=== PATIENT | female | born 1965 | race Caucasian/White ===

== ENCOUNTER 2017-04-06 09:43 | Day surgery (SDC) | payer BC ==
--- OUTSIDE RECORDS SUMMARY | 2017-04-06 09:47 | XMS REPORT | Continuity of Care Document ---
:1965 Author Organization [facility] ([facility] Address [place] [address] Phone [phone] Care Team Providers Name Role Phone Provider, No-Primary Care Primary Care Provider Unavailable Source Comments This disclosure is being made pursuant to the Care Everywhere program, applicable federal and state laws, and may not contain all informaitonavailable regarding this patient.[facility] ([facility]) Active Allergies and Adverse Reactions Not on File Current Medications Not on file Active Problems Not on file Social History Tobacco Use Types Packs/Day Years Used Date Never Assessed Last Filed Vital Signs Vital Sign Reading Time Taken Blood Pressure - - Pulse - - Temperature - - Respiratory Rate - - Height - - Weight 52.998 kg (116 lb 13.4 oz) 08/03/2000 8:05 AM CDT Body Mass Index - - Oxygen Saturation - - Plan of Care Health Maintenance Due Date Last Done Comments HCV Screening 1965 Hepatitis B Vaccine (1 of 3 - Primary Series) 1965 Tdap Vaccine 1975 Lipid Disorder Screening 1982 MMR Vaccine 1982 Td Vaccine 1982 Cervical Cancer Screening 07/18/2003 07/18/2000 Mammogram 2004 07/18/2000 Colonoscopy 2014 Influenza Vaccine: Seasonal (#1) 06/05/2016 Results from Last 3 Months Not on file
--- NOTE | 2017-04-06 10:27 | OR ---
Anesthesia Pre Procedure Eval Pre Procedure Evaluation: Last Vital Signs Temp 36.8 C 04/06/17 10:02 Pulse 58 L 04/06/17 10:02 Resp 16 04/06/17 10:02 BP 89/62 04/06/17 10:02 Pulse Ox 100 04/06/17 10:02 PRE PROCEDURE EVALUATION:: DATE: 04/06/2017 TIME: 1020 INDICATIONS: Radicular cervical pain. 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 EXAM: Lungs clear and equal. Heart rate regular. Patient complains of mid neck pain that radiates into her right shoulder and down into her right hand. Procedure risks and benefits were explained to and accepted by the patient. ASSESSMENT OF MEDICAL STATUS: No contraindication to cervical epidural steroid injection. PLANNED PROCEDURE : Fluoroscopy-guided epidural injection at C7-T1 Home Medications: HOME MEDICATIONS Estrogen,Con/M-Progest Acet [Prempro 0.625-2.5 mg Tablet] 1 tab PO DAILY [Last Taken 06/24/14] Levothyroxine Sodium [Synthroid] 50 mcg PO DAILY 06/25/14 [Last Taken 06/24/14] ALPRAZolam [Xanax] 0.25 mg PO BID PRN 06/30/14 [Last Taken Unknown] Calcium No.1/D3/B6/FA/B12/Aloe [Vitamin D3-Aloe 1,000 Unit Tab] 1 tab PO DAILY 06/30/14 [Last Taken Unknown] Calcium/Cranberry Fruit [Cranberry 400 mg Caplet] 1 each PO DAILY 06/30/14 [ Last Taken Unknown] Cyclobenzaprine HCl [Flexeril] 10 mg PO TID PRN 06/30/14 [Last Taken Unknown] Modafinil [Provigil] 200 mg PO DAILY 06/30/14 [Last Taken Unknown] Multivitamins [Multivitamin Keri] 1 cap PO DAILY 06/30/14 [Last Taken Unknown] traMADol HCL [Ultram] 100 mg PO DAILY PRN 06/30/14 [Last Taken Unknown] Calcium Carbonate [Aofo-Tzp-326] 500 mg PO DAILY 03/29/17 [Last Taken Unknown] EPINEPHrine [Epipen 2-Aristides] 0.3 mg IM ONCE PRN 03/29/17 [Last Taken Unknown] Ibuprofen [Motrin] 400 mg PO Q4H PRN 03/29/17 [Last Taken Unknown]
[2017-04-06] MEDS ORDERED: LIDOCAINE HCL/PF 5 ML VIAL IJ ONE (10:52)
[2017-04-06] MEDS ORDERED: DEXAMETHASONE SOD PHOSPHATE 10 MG/ML VIAL IJ ONE (10:52)
[2017-04-06] MEDS ORDERED: IOPAMIDOL 20 ML VIAL IJ ONE (10:52)
--- NOTE | 2017-04-06 11:27 | OR ---
Anesthesia Procedure Note - Anesthesia Procedure Note Narrative: Vital Signs - Last Taken Temp 36.5 C 04/06/17 11:00 Pulse 60 04/06/17 11:15 Resp 16 04/06/17 11:15 BP 111/86 04/06/17 11:15 Pulse Ox 99 04/06/17 11:15 O2 Oxygen Delivery Method Room Air 04/06/17 11:22 ANESTHESIA PROCEDURE NOTE Date of Procedure: 04/06/2017 Time of procedure: 10:30. Performed by: Phoenix Lazar CRNA Lay Up Operator: None. Preprocedure diagnosis: Radicular cervical neck pain. Bulging disc C4 5 C5 6. Post procedure diagnosis: Same. Procedure: Epidural Steroid Injection at C7-T1. Indications: Radicular cervical neck pain. Findings: See below. Details of the procedure: The patient was brought back to operating room #4. The patient was then placed in the prone position. Back of neck was prepped with DuraPrep. Patient was then draped in sterile fashion. Lidocaine 1% was infiltrated to the skin and subcutaneous tissues at the level of the C7-T1 interspace. The epidural space was identified using a 20-gauge Tuohy needle with [id number] technique and fluoroscopic guidance. A total of 1.5 mL of Isovue-200 contrast I was injected in the AP position to confirm needle placement. Attempted identification of needle placement and lateral position was unsuccessful secondary to patient's shoulders obstructing the view. Dexamethasone 10 mg + 5 mL of 1% preservative-free lidocaine was administered to the epidural space after negative aspiration for blood and CSF. The Tuohy needle was removed intact. A Band-Aid was applied to the patient's back. The patient was then placed in a supine position for 5 minutes before returning to the ambulatory surgical unit. A total of 31.4 seconds of fluoroscopy time was used. Total dose 2.53 m/gy EBL: Minimal. Fluids: N/A. Specimen: N/A. Post procedure condition: The patient tolerated the procedure well. No complications were noted. Thank you for this consultation. Phoenix Lazar CRNA
[2017-04-06 11:33] VITALS: BP 103/84
== END 2017-04-06 09:44 | disposition home or self-care (01) ==
LOC: AMB 09:43
PROVIDERS: ATTEND Family Medicine
PROC: 3E0S3BZ Introduction of Anesthetic Agent into Epidural Space, Percutaneous Approach (ICD-10-PCS; 2017-04-06)
PROC: 3E0S33Z Introduction of Anti-inflammatory into Epidural Space, Percutaneous Approach (ICD-10-PCS; principal; 2017-04-06 10:30)
DX: M50.221 Other cervical disc displacement at C4-C5 level (principal); Z68.1 Body mass index [BMI] 19.9 or less, adult